=== PATIENT | male | born 1940 | race Caucasian/White ===

== ENCOUNTER 2017-03-05 11:46 | Emergency (ER) | payer OTHER ==
[~2017-03-05] VITALS: Ht 175.3 cm; Wt 83.9 kg
--- NOTE | ~2017-03-05 | EKG ---
[place] [address] [facility] [place] [address] ELECTROCARDIOGRAM REPORT Name: MERRITT KIRBY Room #: [place]#: [id number] Admission: 03/05/17 Attend Phys: Discharge: 03/05/17 Date of : 42 Report #: [id number] THIS REPORT FOR: //name// [facility] ED Test Date: 2017-03-05 Test Time: 11:52:02 Pat Name: MERRITT KIRBY Department: Room: Gender: Wound Care Physician: MZOOK : 1940 Requested By: Xiomy Baltazar Order Number: [id number] MD: Jeronimo Houser Measurements Intervals [place] Rate: 117 P: 168 SD: 199 QRS: -26 QRSD: 104 T: 127 QT: 330 QTc: 461 Interpretive Statements Atrial fibrillation Probable LVH with secondary repol abnrm Compared to ECG 07/27/2012 12:53:07 nonspecific change in the ST and T wave segments Electronically Signed On 03-06-2017 8:28:41 CDT by Jeronimo Houser [email or web address] <ELECTRONICALLY SIGNED> By: Jeronimo Houser MD, [facility] 03/06/17 0828 51 51 Jeronimo Houser MD, [facility] /EPI
[~2017-03-05 11:46] MED LIST: AFLURIA 2045 MCG/0.4; ANDROGEL; ANDROGEL2.5 GM TOP; CARDIZEM CD180 MG PO; COUMADIN 5 MG TA5 M1; COUMADIN7.5 MG; FISH OIL 1,2001 EAC4 PO; HYDROCHLOROTH12.5 MG PO; LATANOPROST2.5 ML OPHTHALMIC; LEVOTHYROXIN0.025 MG PO; LISINOPRIL40 MG PO; LOPRESSOR25 PO; ONE DAILY MULT1 EAC2 PO; PNEUMOVAX25 MCG/0.5; PRADAXA150 MG PO; PROBIOTIC1 EACH PO; RYTHMOL225 MG PO; SIMVASTATIN40 MG PO; VITAMIN D31000 UNI2 PO; VITRUM SENIOR1 EAC1 PO; XALATAN2.5 ML OPHTHALMIC; ZOCOR 10 MG TAB10 M1 PO
[2017-03-05 12:11] LABS: ABSOLUTE NEUTROPHILS 3.8 thou/uL (1.4-8.2); BASOPHILS 0.8 % (0.0-2.0); EOSINOPHILS 1.3 % (0.0-3.0); HEMATOCRIT 39.7 % (42.0-52.0); HEMOGLOBIN 13.5 gm/dL (14.0-18.0); LYMPHOCYTES 32.7 % (24.0-44.0); MCH 33.5 pg (26.0-34.0); MCHC 33.9 g/dL (28.0-37.0); MCV 98.8 fL (80.0-100.0); MONOCYTES 6.6 % (1.0-8.0); PLATELET COUNT 151 thou/uL (150-400); POLYS 58.6 % (36.0-66.0); RBC 4.02 mil/uL (4.50-6.00); RDW 14.6 % (10.5-14.5); WBC 6.6 thou/uL (4.0-11.0)
[2017-03-05 12:13] LABS: MANUAL DIFF NO
[2017-03-05 12:18] LABS: ANION GAP 9 mmol/L (7-16); BUN 24 mg/dL (7-18); CALCIUM 8.9 mg/dL (8.5-10.1); CHLORIDE 106 mmol/L (98-107); CO2 26 mmol/L (21-32); CREATININE 1.2 mg/dL (0.7-1.3); GLUCOSE 87 mg/dL (74-106); POTASSIUM 4.1 mmol/L (3.5-5.1); SODIUM 141 mmol/L (136-145)
[2017-03-05 12:27] LABS: TROPONIN-I < 0.04 ng/mL (<0.04-0.07)
[2017-03-05 12:32] LABS: INR 1.2; PROTIME 12.4 Seconds (9.3-11.4)
[2017-03-05] MEDS ORDERED: COZAAR 50 MG TA50 M2 PO (13:33)
[2017-03-05] MEDS ORDERED: LEVOTHYROXIN0.075 MG PO (13:34)
[2017-03-05] MEDS ORDERED: PRADAXA150 MG PO (13:34)
[2017-03-05] MEDS ORDERED: CENTRUM SILVER1 EAC2 PO (13:35)
[2017-03-05] MEDS ORDERED: VIBRAMYCIN 100100 MG PO (13:55)
[2017-03-05 14:01] VITALS: BP 125/81
== END 2017-03-05 14:11 | disposition home or self-care (01) ==
LOC: ER 11:46
PROVIDERS: Emergency Medicine
DX: J18.8 Other pneumonia, unspecified organism (principal); I48.0 Paroxysmal atrial fibrillation; I10 Essential (primary) hypertension; E78.5 Hyperlipidemia, unspecified; E03.9 Hypothyroidism, unspecified; Z98.890 Other specified postprocedural states; F10.99 Alcohol use, unspecified with unspecified alcohol-induced disorder

== ENCOUNTER 2019-07-12 14:37 | Emergency (ER) | payer OTHER ==
[~2019-07-12] VITALS: Ht 177.8 cm; Wt 83.0 kg
--- NOTE | ~2019-07-12 | EMS ---
[address] [address] EMS Patient Care Report Name: MERRITT KIRBY Room #: [facility] Fields#: [id number] Admission: 07/12/19 Attend Phys: Discharge: 07/12/19 Date of : 42 Report #: [id number] THIS REPORT FOR: //name// Report Transmitted: 07/14/2019 08:04 EMS Care Summary [place], [place]/[facility] Incident [id number] @ 07/12/2019 14:03 Incident Location [address] [place] [address] Patient MERRITT KIRBY Male, 78 Years 1940 Patient Address [address] [place], [place] [id number] Patient History Congestive Heart Failure (CHF),Atrial Fibrillation, Patient Allergies No known allergies, Patient Medications Diltiazem, Levothyroxine, Lasix, Xarelto, Chief Complaint NEAR SYNCOPE Disposition Transported No Lights/Searchlight Dispatch Reason Sick Person Transported To [facility] Narrative M28 DISPATCHED TO RESIDENCE ON A REPORT OF A SICK PERSON. UPON ARRIVAL ON SCENE EMS FIND 78/M PT LYING SUPINE ON BED IN NO APPARENT DISTRESS. PT AOX4, PT STATED HE WAS OUTSIDE AND WITH MILD EXTORTION SUDDENLY BECAME LIGHTHEADED AND DIZZY. PT STATED HE WAS ABLE TO WALK BACK INSIDE HIS HOUSE AND LAY DOWN. PT [address] [address] EMS Patient Care Report Name: MERRITT KIRBY Room #: DEP [facility]#: [id number] Admission: 07/12/19 Attend Phys: Discharge: 07/12/19 Date of : 42 Report #: [id number] STATED HIS SYMPTOMS GRADUALLY SUBSIDED AND CURRENTLY HAD NO COMPLAINTS. PT DENIED ANY LOC AND DENIED ANY TRAUMA THAT WOULD OF CONTRIBUTED TO PT SYMPTOMS. PT ASSISTED SHORT DISTANCE ONTO EMS STRETCHER WHERE PT PLACED IN POSITION OF COMFORT ON STRETCHER, WITH GUARDRAILS PLACED IN UPRIGHT LOCKED POSITION AND SEATBELTS FASTENED. PT MOVED ON EMS STRETCHER INTO AMBULANCE FOR FURTHER EVALUATION. PT VITALS OBTAINED ALONG WITH BLOOD GLUCOSE. PT PLACED ON OPHTHALMIC MEDICAL TECHNOLOGIST WHICH REVEALED A-FIB. PT STATED HE HAD A KNOWN HISTORY OF A-FIB. PT CONDITION CONTINUALLY MONITORED EN ROUTE TO [facility]. NO NOTICEABLE CHANGES IN PT CONDITION DURING TRANSPORT TO RECEIVING FACILITY. UPON ARRIVAL TO [facility] PT MOVED INTO FACILITY ON EMS STRETCHER, WHERE PT WAS THEN ABLE TO SELF TRANSFER WITH ASSISTANCE FROM EMS ONTO ER HOSPITAL BED. PT REPORT GIVEN TO RECEIVING NURSING STAFF AND TRANSFER OF PT CARE COMPLETED. Initial Vitals @14:18P: 80,R: 16,BP: 133/83,Pain: 0/10,GCS: 15,Glucose: 114,SpO2: 97,Revised Trauma: 12, @14:26P: 71,R: 16,BP: 120/76,Pain: 0/10,GCS: 15,CO: 0,SpO2: 98,Revised Trauma: 12, Assessments @14:15MENTAL:Time Oriented,Person Oriented,Place Oriented,Event Oriented,SKIN:Pale,HEENT:LUNG SOUNDS:Left Upper: No Abnormalities,Right Upper: No Abnormalities,Left Lower: No Abnormalities,Right Lower: No Abnormalities,ABDOMEN:Left Upper: No Abnormalities,Right Upper: No Abnormalities,Left Lower: No Abnormalities,Right Lower: No Abnormalities,PELVIS//GI:EXTREMITIES:Left Arm: No Abnormalities,Right Arm: No Abnormalities,Left Leg: No Abnormalities,Right Leg: No Abnormalities,PULSE:NEURO: Impression Syncope / Fainting Procedures @14:14ALS AssessmentResponse: UnchangedSucceeded@14:263-Lead ECGResponse: UnchangedSucceeded@14:15StretcherResponse: Unchanged Timeline 14:02,Call Received 14:02,Dispatch Notified 14:03,Dispatched 14:04,En Route 14:11,On Scene 14:13,At Patient 14:14,ALS Assessment,Response: UnchangedSucceeded, 14:15,Stretcher,Response: Unchanged 14:18,BP: 133/83 M,PULSE: 80,RR: 16 R,SPO2: 97 Ox,ETCO2: ,B,PAIN: 0,GCS: [address] [address] EMS Patient Care Report Name: MERRITT KIRBY Teri Room #: [facility] HELENA Fields#: [id number] Admission: 07/12/19 Attend Phys: Discharge: 07/12/19 Date of : 42 Report #: [id number] 15, 14:22,Depart Scene 14:26,BP: 120/76 M,PULSE: 71,RR: 16 R,SPO2: 98 Ox,ETCO2: ,BG: ,PAIN: 0,GCS: 15, 14:26,3-Lead ECG,Response: UnchangedSucceeded, 14:33,At Destination 14:50,Call Closed Disclaimer v1.1 Copyright 2019 [employer] This EMS Care Summary contains data elements from the applicable legal record (which may be displayed differently). It is designed to provide pertinent information for the following purposes: continuity of care, clinical quality, and state data reporting. The complete legal record is available to ED staff and administrators of the receiving hospital in [email or web address]'s Patient Tracker. All data is provided "as is."
[~2019-07-12 14:37] MED LIST changes: +CENTRUM SILVER1 EAC2 PO; +COZAAR 50 MG TA50 M2 PO; +LEVOTHYROXIN0.075 MG PO; +VIBRAMYCIN 100100 MG PO
[2019-07-12] MEDS ORDERED: XARELTO15 MG PO (14:50)
[2019-07-12] MEDS ORDERED: BYSTOLIC10 MG PO (14:51)
[2019-07-12] MEDS ORDERED: SPIRONOLACTONE25 MG PO (14:51)
[2019-07-12] MEDS ORDERED: LASIX 20 MG TAB20 MG PO (14:51)
[2019-07-12 15:25] LABS: ABSOLUTE NEUTROPHILS 3.2 thou/uL (1.4-8.2); BASOPHILS 0.6 % (0.0-2.0); EOSINOPHILS 2.8 % (0.0-3.0); HEMATOCRIT 38.7 % (42.0-52.0); HEMOGLOBIN 13.4 gm/dL (14.0-18.0); LYMPHOCYTES 34.5 % (24.0-44.0); MCH 34.3 pg (26.0-34.0); MCHC 34.7 g/dL (28.0-37.0); MCV 98.8 fL (80.0-100.0); MONOCYTES 8.2 % (1.0-8.0); PLATELET COUNT 193 thou/uL (150-400); POLYS 53.9 % (36.0-66.0); RBC 3.92 mil/uL (4.50-6.00); RDW 13.4 % (10.5-14.5)
[2019-07-12 15:59] LABS: APTT 27.8 Seconds (24.5-32.8); INR 1.1; PROTIME 11.4 Seconds (9.3-11.4)
[2019-07-12 16:20] LABS: ANION GAP 11 mmol/L (7-16); BUN 28 mg/dL (7-18); CALCIUM 9.2 mg/dL (8.5-10.1); CHLORIDE 101 mmol/L (98-107); CO2 26 mmol/L (21-32); GLUCOSE 90 mg/dL (74-106); POTASSIUM 4.7 mmol/L (3.5-5.1); SODIUM 138 mmol/L (136-145)
[2019-07-12 16:27] LABS: DIRECT BILIRUBIN < 0.1 mg/dL (<0.1-0.3); MAGNESIUM 2.1 mg/dL (1.8-2.4); SGPT 20 U/L (30-65); TOTAL BILIRUBIN 0.6 mg/dL (<0.1-1.0); TOTAL PROTEIN 7.5 g/dL (6.4-8.2)
[2019-07-12 16:40] LABS: SGOT 44 U/L (15-37)
[2019-07-12 17:40] VITALS: BP 108/62
--- NOTE | 2019-07-14 09:07 | EKG ---
[address] [address] ELECTROCARDIOGRAM REPORT Name: MERRITT KIRBY [facility] [id number] Admission: 07/12/19 Attend Phys: Discharge: 07/12/19 Date of : 42 Report #: [id number] THIS REPORT FOR: //name// [facility] ED Test Date: 2019-07-12 Test Time: 14:38:46 Pat Name: MERRITT KIRBY Department: Room: Gender: Car Inspection And Repair Manager: : 1940 Requested By: Bettina Reid Order Number: [id number] MD: José Luis Harper Measurements Intervals [place] Rate: 76 P: RI: QRS: -19 QRSD: 106 T: 27 QT: 404 QTc: 455 Interpretive Statements Atrial fibrillation Borderline left axis deviation Compared to ECG 03/05/2017 11:52:02 No significant changes Electronically Signed On 07-14-2019 9:06:56 CDT by José Luis Harper [email or web address] <ELECTRONICALLY SIGNED> By: José Luis Harper MD 07/14/19 09 1438 1438 MD GERRY Concepcion
== END 2019-07-12 18:03 | disposition home or self-care (01) ==
LOC: ER 14:37
PROVIDERS: Emergency Medicine
DX: R55 Syncope and collapse (principal); I48.91 Unspecified atrial fibrillation; E78.00 Pure hypercholesterolemia, unspecified; E03.9 Hypothyroidism, unspecified; Z98.890 Other specified postprocedural states

== ENCOUNTER → 2020-05-18 | Outpatient (CLI) | payer OTHER ==
[~2020-05-18] MED LIST changes: +BYSTOLIC10 MG PO; +LASIX 20 MG TAB20 MG PO; +SPIRONOLACTONE25 MG PO; +XARELTO15 MG PO
== END ==
LOC: SJCVC 11:54
PROVIDERS: ATTEND Internal Medicine Cardiovascular Disease
DX: R94.31 Abnormal electrocardiogram [ECG] [EKG] (principal); I25.10 Atherosclerotic heart disease of native coronary artery without angina pectoris; I48.91 Unspecified atrial fibrillation; I10 Essential (primary) hypertension; E78.00 Pure hypercholesterolemia, unspecified; I34.0 Nonrheumatic mitral (valve) insufficiency

== ENCOUNTER → 2021-02-15 | Outpatient (CLI) | payer OTHER | LOC: SJCVC 11:02 | PROVIDERS: ATTEND Internal Medicine Cardiovascular Disease | DX: I25.10 Atherosclerotic heart disease of native coronary artery without angina pectoris (principal); I49.3 Ventricular premature depolarization; I10 Essential (primary) hypertension; E78.00 Pure hypercholesterolemia, unspecified; I34.0 Nonrheumatic mitral (valve) insufficiency; I48.91 Unspecified atrial fibrillation; D68.59 Other primary thrombophilia; E78.5 Hyperlipidemia, unspecified; E03.9 Hypothyroidism, unspecified; Z98.890 Other specified postprocedural states; Z79.899 Other long term (current) drug therapy; Z87.891 Personal history of nicotine dependence; Z82.49 Family history of ischemic heart disease and other diseases of the circulatory system ==

== ENCOUNTER → 2021-09-28 | Outpatient (CLI) | payer OTHER | LOC: SJCVC 13:00 | PROVIDERS: ATTEND Internal Medicine Cardiovascular Disease | DX: I48.21 Permanent atrial fibrillation (principal); I25.10 Atherosclerotic heart disease of native coronary artery without angina pectoris; I34.0 Nonrheumatic mitral (valve) insufficiency; I10 Essential (primary) hypertension; E78.00 Pure hypercholesterolemia, unspecified; E03.9 Hypothyroidism, unspecified; Z87.891 Personal history of nicotine dependence; Z79.899 Other long term (current) drug therapy; Z72.89 Other problems related to lifestyle; Z82.49 Family history of ischemic heart disease and other diseases of the circulatory system ==

== ENCOUNTER → 2021-12-14 | Outpatient (CLI) | payer OTHER | LOC: NUC 14:40 | PROVIDERS: ATTEND Internal Medicine Endocrinology, Diabetes & Metabolism | DX: M81.0 Age-related osteoporosis without current pathological fracture (principal); E29.1 Testicular hypofunction ==